=== PATIENT | male | born 1980 | race Caucasian/White ===

== ENCOUNTER 2025-10-25 06:17 | Day surgery (SDC) | payer BC ==
[2025-10-24 10:58] VITALS: BMI 27.9
[2025-10-25] MEDS ORDERED: Lidocaine 1% w/Epinephrine 1:200K 30 ML VIAL ONE (07:01)
[2025-10-25] MEDS ORDERED: Ferric Subsulfate 8 ML TOPICAL SOLN ONE (07:01)
[2025-10-25] MEDS ORDERED: Bacitracin 1 PK ONE (07:01)
[2025-10-25] MEDS ORDERED: Rocuronium Bromide 10 MG/ML (10ML VIAL) ONE (08:00)
[2025-10-25] MEDS ORDERED: PROPOFOL 40 ML ONE (08:00)
[2025-10-25] MEDS ORDERED: SUGAMMADEX SODIUM 200 MG/2 ML VIAL ONE (08:00)
[2025-10-25] MEDS ORDERED: KETAMINE 100 MG/ML (5ML VIAL) ONE (08:20)
[2025-10-25] MEDS ORDERED: AFRIN NASAL MIST 15 ML BOT ONE (08:25)
[2025-10-25] MEDS ORDERED: Oxymetazoline HCl 0.05% (15 ML) ONE (08:44)
[2025-10-25] MEDS ORDERED: HYDROcodone/Acetaminophen 5/325 mg Tablet ONE (10:01)
== END 2025-10-25 11:10 | disposition home or self-care (01) ==
LOC: CSHSDC 06:17
PROVIDERS: ATTEND Specialist
PROC: 09TL8ZZ Resection of Nasal Turbinate, Via Natural or Artificial Opening Endoscopic (ICD-10-PCS; principal; 2025-10-25)
PROC: 09SM4ZZ Reposition Nasal Septum, Percutaneous Endoscopic Approach (ICD-10-PCS; principal; 2025-10-25)
PROC: 0CTPXZZ Resection of Tonsils, External Approach (ICD-10-PCS; principal; 2025-10-25)
DX: J34.2 Deviated nasal septum (principal); J35.01 Chronic tonsillitis; J34.3 Hypertrophy of nasal turbinates; J30.89 Other allergic rhinitis; E78.00 Pure hypercholesterolemia, unspecified; Z90.49 Acquired absence of other specified parts of digestive tract; Z88.0 Allergy status to penicillin; Z79.899 Other long term (current) drug therapy
CPT/HCPCS: J1100; J2704